=== PATIENT | female | born 1975 | race Caucasian/White ===

== ENCOUNTER 2021-01-26 21:23 | Inpatient (IN) | payer MEDICAID, SELFPAY ==
[2021-01-26 21:38] VITALS: BP 108/54; PULSE 75; RESP 18; O2SAT 99
[2021-01-26 21:39] VITALS: BMI 28.3
[2021-01-26 22:00] VITALS: RESP 16
--- NOTE | 2021-01-27 02:29 | PC.ADMIT ---
[address] Admission Note: The patient,Arleen Peoples,45 y/o, was given written information regarding hospital policies, unit procedures and contact persons. Patient's smoking status: . Vital Signs - 8 hr 01/26/21 21:38 01/26/21 22:00 Pulse Rate 75 Respiratory Rate 18 16 Blood Pressure 108/54 Pulse Oximetry 99 Patient arrives for admission to unit via EMS from [facility]. Patient is alert/oriented x4, anxious and hyperverbal. Patient was positive for Amphetamine in the ER. Patient presented to their ER on foot initially complaining of hip pain. ( Patient has hx of bilateral hip replacement). Patient was going to be discharged then became upset and began talking about witchcraft being casted against her. Patient also claimed that she was going to jump in the river. Patient reports to this Nurse that she lost her apartment in July due to the [employer]. Since that time she has [facility]. She states that she has slept outside for the last 3 nights and has nowhere to go. Patient is very fixated on Witchcraft, spells and [place]. She has 3 sons ages 21, 19 and 17 but they live with their fathers. She reports that she is supposed to be on the following medications: Effexor, Lamictal, Klonopin, Ambien and Gabapentin. She cannot state the doses or the last time she took these medications. Skin assessment unremarkable. Patient given several snacks then retired to bed. Will continue to monitor and follow plan of care. Q 15 min safety checks per protocol.
[2021-01-27 06:00] VITALS: BP 149/72; PULSE 57; RESP 17; O2SAT 98
[2021-01-27] MEDS: blistex lip oint 7 gm Tube 1 APPLIC TOPICAL (08:45)
--- NOTE | 2021-01-27 10:45 | NPU.GN ---
[facility] Group Topic:Depression/ Anxiety Anuradha General Mood of Group: Arleen did attend and participate in group . She was social and had good hygiene.
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
[2021-01-27] MEDS: venlafaxine ER (24HR) 75 mg Capsule PO (12:04)
[2021-01-27 14:00] VITALS: BP 104/65; PULSE 88; RESP 17; TEMP 37; O2SAT 97
[2021-01-27] MEDS: quetiapine 25 mg Tablet 50 MG PO (14:04)
[2021-01-27] MEDS: hyDROXYzine 25 mg Capsule 50 MG PO (14:48)
[2021-01-27] MEDS: nicotine 21 mg Patch 1 PATCH TRANSDERMA (14:48)
[2021-01-27] MEDS: gabapentin 400 mg Capsule PO (17:37)
[2021-01-27] MEDS: quetiapine 100 mg Tablet PO (21:02)
[2021-01-27] MEDS: lamoTRIgine 25 mg Tablet PO (21:02)
[2021-01-27 22:00] VITALS: BP 104/61; PULSE 71; RESP 16; TEMP 37.1; O2SAT 95
[2021-01-28] MEDS: acetaminophen 325 mg Tablet 650 MG PO ×2 (05:44→17:53)
[2021-01-28 05:56] VITALS: BP 123/81; PULSE 74; RESP 15; TEMP 36.5; O2SAT 97
[2021-01-28] MEDS: gabapentin 400 mg Capsule PO ×2 (07:59→17:55)
[2021-01-28] MEDS: OLANZapine 5 mg ODT PO ×2 (08:00→15:20)
[2021-01-28] MEDS: hyDROXYzine 25 mg Capsule 50 MG PO ×2 (08:00→15:20)
[2021-01-28] MEDS: venlafaxine ER (24HR) 75 mg Capsule PO (08:00)
[2021-01-28] MEDS: quetiapine 25 mg Tablet 50 MG PO ×2 (08:03→15:20)
[2021-01-28] MEDS: clotrimazole 1% cream 30 gm 1 APPLIC TOPICAL ×2 (09:41→18:55)
--- NOTE | 2021-01-28 11:10 | NPU.GN ---
[facility] Group Topic:Rosa Isela Word Search General Mood of Group: Arleen did attend and participate in group. Hygiene was ok and patient was social with others in group.
[2021-01-28 14:00] VITALS: BP 111/68; PULSE 71; RESP 17; TEMP 36.8; O2SAT 98
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
[2021-01-28 20:51] VITALS: BP 97/59; PULSE 65; RESP 16; TEMP 36.8; O2SAT 99
[2021-01-28] MEDS: lamoTRIgine 25 mg Tablet PO (21:30)
[2021-01-28] MEDS: quetiapine 100 mg Tablet PO (21:30)
[2021-01-29 06:00] VITALS: RESP 15
[2021-01-29] MEDS: quetiapine 25 mg Tablet 50 MG PO (09:42)
[2021-01-29] MEDS: OLANZapine 5 mg ODT PO (09:42)
[2021-01-29] MEDS: gabapentin 400 mg Capsule PO (09:42)
[2021-01-29] MEDS: venlafaxine ER (24HR) 75 mg Capsule 150 MG PO (09:43)
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
[2021-01-29 10:09] VITALS: BP 97/59; PULSE 65; RESP 15; TEMP 36.8; O2SAT 99
[2021-01-29] MEDS: nicotine 2 mg Gum BUCCAL (10:16)
--- NOTE | 2021-01-29 10:35 | NPU.GN ---
[facility] Unit Group Topic:Crisis Plan, Triggers, Coping Mechanisms. General Mood of Group: Arleen did participate and attend group today. Arleen was social and seemed mentally stable today. Arleen had good hygiene as well.
[2021-01-29] MEDS: clotrimazole 1% cream 30 gm 1 APPLIC TOPICAL (10:46)
== END 2021-01-29 12:43 | disposition home or self-care (01) | DRG 885 ==
PROVIDERS: Admitting Provider Psychiatry & Neurology Psychiatry; Visit Provider Psychiatry & Neurology Psychiatry
DX: F20.0 Paranoid schizophrenia (principal); F15.90 Other stimulant use, unspecified, uncomplicated; Z59.02 Unsheltered homelessness; G47.00 Insomnia, unspecified; F43.10 Post-traumatic stress disorder, unspecified; F41.9 Anxiety disorder, unspecified
CPT/HCPCS: 97150; 97165